=== PATIENT | male | born 1990 | race Caucasian/White ===

== ENCOUNTER 2018-12-09 05:16 | Emergency (ER) | payer OTHER ==
[~2018-12-09] VITALS: Ht 175.3 cm; Wt 106.8 kg
[2018-12-09 05:21] VITALS: Ht 175.3 cm; Wt 106.8 kg
[2018-12-09 05:51] LABS: BASOPHILS 0.2 % (0-2); EOSINOPHILS 3.7 % (0-7); HEMATOCRIT 49.2 % (42.0-54.0); HEMOGLOBIN 17.9 g/dL (13.5-17.5); IMMATURE GRANULOCYTES 0.3 % (0-5); LYMPHOCYTES 16.8 % (15-50); MCH 33.2 pg (26.0-34.0); MCHC 36.4 g/dL (31.0-37.0); MCV 91.3 fL (80.0-100.0); MEAN PLATELET VOLUME 10.9 fL (7.4-10.4); MONOCYTES 12.3 % (2-11); NEUTROPHILS 66.7 % (40-80); PLATELET COUNT 213 10x3/uL (130-400); RBC 5.39 10x6/uL (4.20-6.10); RDW 12.8 % (11.5-14.5); WBC 11.5 10x3/uL (4.8-10.8)
[2018-12-09 06:19] LABS: ALBUMIN 4.6 g/dL (3.4-5.0); ALKALINE PHOSPHATASE 70 U/L (46-116); ALT (SGPT) 30 U/L (10-68); BILIRUBIN - TOTAL 0.98 mg/dL (0.2-1.3); CALC OSMOLALITY 281 mosm/kg (275-300); CALCIUM 9.6 mg/dL (8.5-10.1); CARBON DIOXIDE 21.7 mmol/L (21.0-32.0); CHLORIDE - SERUM 106 mmol/L (98-107); CREATININE - SERUM 1.1 mg/dL (0.6-1.3); GLUCOSE 112 mg/dL (74-106); SODIUM 140 mmol/L (136-145); UREA NITROGEN 17 mg/dL (7-18); eGFR NON AFRICAN AMERICAN 84 mL/min (90-120)
[2018-12-09 06:21] LABS: POTASSIUM - SERUM 4.3 mmol/L (3.5-5.1)
[2018-12-09] MEDS ORDERED: DILAUDID4 MG PO (06:50)
[2018-12-09 06:52] LABS: APPEARANCE HAZY (CLEAR); BACTERIA NONE SEEN /hpf (NEGATIVE); BILIRUBIN NEGATIVE (NEGATIVE); COLOR YELLOW (YELLOW); EPITHELIAL CELLS RARE /hpf (0-5); GLUCOSE NEGATIVE (NEGATIVE); KETONE NEGATIVE (NEGATIVE); NITRITE NEGATIVE (NEGATIVE); PROTEIN NEGATIVE (NEGATIVE); SPECIFIC GRAVITY 1.025 (1.005-1.020); UROBILINOGEN NORMAL (NORMAL); WHITE CELLS - URINE NSEEN /hpf (NEGATIVE)
[2018-12-09 07:40] VITALS: BP 125/77
[2018-12-10 10:48] VITALS: Ht 175.3 cm; Wt 106.8 kg
[2018-12-10] MEDS ORDERED: FLUTICASONE PRO16 GM NASAL (10:48)
== END 2018-12-09 07:40 | disposition home or self-care (01) ==
LOC: D.ER 05:16
PROVIDERS: Emergency Medicine
DX: N23 Unspecified renal colic (principal); R11.10 Vomiting, unspecified

== ENCOUNTER 2018-12-09 23:43 | Observation (INO) | payer OTHER ==
[~2018-12-09] VITALS: Ht 175.3 cm; Wt 104.5 kg
[~2018-12-09 23:43] MED LIST: DILAUDID4 MG PO
--- NOTE | 2018-12-10 01:16 | NUR ---
ACCIDENTLY PUT FENTANYL IN SHARPS BEFORE DRAWING IT UP. INFORMED CHARGE. WASTED IN PYXIS.
[2018-12-10 02:28] VITALS: BP 113/66
[2018-12-10 03:02] VITALS: BP 125/71
[2018-12-10 04:04] VITALS: BP 138/79
--- NOTE | 2018-12-10 04:30 | NUR ---
ATTEMPTED TO CALL REPORT AT THIS TIME.
[2018-12-10 05:57] VITALS: BP 138/61; BMI 34.0
--- NOTE | 2018-12-10 06:50 | NUR ---
ADMISSION ASSESSMENT COMPLETE. VSS STABLE. NO VISUAL CUES OF DISTRESS NOTED. WILL CONTINUE TO MONITOR.
[2018-12-10 08:39] VITALS: BP 136/86
--- NOTE | 2018-12-10 08:40 | NUR ---
AM ROUNDS- PT IS RESTING COMFORTABLY IN BED AT THIS TIME. ALERT AND ORIENTED. VITAL SIGNS ASSESSED. PT COMPLAINT OF NASAL CONGESTION, INFORMED HIM I WILL TELL THE UNIX MANAGER/DOCTOR. DENIES ANY NEEDS AT THIS TIME. WILL CTM. BP- 130/86 P- 80 R- 17 O2- 99% ROOM AIR
--- NOTE | 2018-12-10 10:20 | NUR ---
PT SIGNED CONSENTS FOR LITHOTRIPSY PROCEDURE TODAY BY DR. FAY.
[2018-12-10 10:48] VITALS: Ht 175.3 cm; Wt 104.5 kg
[2018-12-10] MEDS ORDERED: FLUTICASONE PRO16 GM NASAL (10:48)
--- NOTE | 2018-12-10 13:00 | NUR ---
ADMINISTERED PRE-OP MEDICATIONS. DENIES ANY NEEDS. WILL CTM.
--- NOTE | 2018-12-10 13:08 | NUR ---
PT TO SURGERY.
--- NOTE | 2018-12-10 14:56 | NUR ---
PT STILL GONE TO PROCEDURE.
--- NOTE | 2018-12-10 15:45 | NUR ---
PT RETURNED FROM PROCEDURE. PT HAS A STENT AND THE STRING IS HANGING FROM THE PATIENT'S PENIS LIKE IT IS SUPPOSED TO BE. PT IS RESTING COMFORTABLY, RATES PAIN LEVEL AT 1/10. REQUESTED WATER, PROVIDED PROMPTLY. DENIES OTHER NEEDS. WILL CTM.
--- NOTE | 2018-12-10 17:15 | NUR ---
ADMINISTERED PRN PAIN MEDICATION FOR GENITAL PAIN FROM PROCEDURE TODAY. PT IS UPRIGHT EATING DINNER. DENIES ANY OTHER NEEDS AT THIS TIME. WILL CTM.
--- NOTE | 2018-12-10 17:46 | NUR ---
ADMINISTERED PRN MORPHINE FOR INCREASED GENITAL AREA PAIN AND KIDNEY/SIDE PAIN. TOLERATED WELL. DENIES ANY NEEDS. FRIENDS AT BEDSIDE. WILL REASSESS AND CTM.
--- NOTE | 2018-12-10 18:41 | NUR ---
CALLED DR. FAY IN REFERENCE TO PT STAYING ANOTHER NIGHT VERSUS BEING DISCHARGED TONIGHT. PT HAS HEMOTURIA (NORMAL AMOUNT) BUT WAS UNSETTLED BY IT AND IS HAVING TO HAVE IV MORPHINE TO CONTROL PAIN. DR. FAY OKAY'D PT STAYING THE NIGHT AND DISCHARGING IN THE AM IF PAIN IS STILL CONTROLLED.
[2018-12-10 20:06] VITALS: BP 124/67; BP 136/89
[2018-12-11 00:49] VITALS: BP 121/81
[2018-12-11 04:48] VITALS: BP 140/75
--- NOTE | 2018-12-11 09:06 | NUR ---
PT RESTING COMFORTABLY IN BED. STILL HAS MILD PAIN WITH URINATION. ATTEMPTING TO CONTACT DR. FAY FOR A PRESCRIPTION FOR PAIN RELIEF BEFORE DISCHARGE. DENIES ANY NEEDS. WILL CTM.
[2018-12-11] MEDS ORDERED: FLOMAX0.4 MG PO (09:55)
[2018-12-11] MEDS ORDERED: HYDROCODON-ACE1 EAC7 PO (09:56)
--- NOTE | 2018-12-11 10:27 | NUR ---
PT SIGNED DISCHARGE PAPERS. REMOVED IV FROM RIGHT FOREARM, CATHETER TIP INTACT TOLERATED WELL. DENIES ANY NEEDS. PROVIDED PT WITH A BELONGINGS BAG. DENIES ANY NEEDS. WILL BE ESCORTED TO THE FRONT BY FRIENDS.
--- NOTE | 2018-12-11 10:34 | OP ---
PATIENT NAME: QUINTIN ARAYA JR MEDICAL RECORD: [id number] :89 LOCATION:D.M3 D.1205 ADMISSION DATE:12/10/18 SURGEON: CLIFTON FAY MD DATE OF OPERATION: 12/10/2018 SURGEON: Clifton Fay MD ANESTHESIA: General anesthesia by Musa Sanchez CRNA. DIAGNOSIS: Left 3-mm distal ureteral stone. PROCEDURES: Cystoscopy, left retrograde pyelogram, left ureteroscopy and stone extraction, left ureteral stent insertion 6-[place] x 26 cm with string attached. FINDINGS: Radiolucent stone. The stone was at the left ureteral orifice on cystoscopy. BLOOD LOSS: None. CLINICAL HISTORY: This is a 28-year-old male with no previous history of kidney stones. He presented with acute left flank pain, nausea, and vomiting. 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 CT scan done in the Emergency Room shows a 3-mm stone at the left L3 vertebral body level. A KUB was obtained and no radiodense stone could be seen. He was continued to have a lot of severe pain. Initially, we wanted to perform left lithotripsy on him. When we placed him on the lithotripsy table, we could not find the stone at all as there was not radiodense. Most likely it is a uric acid stone. Due to the patient's extreme pain, I suspected that he may be trying to pass the stone and the stone may be at the left ureterovesical junction. Therefore, we switched plans to left ureteroscopy and stone extraction. DESCRIPTION OF PROCEDURE: The patient was placed on the cystoscopy table in supine position. He was given induction of general anesthesia. He was then placed into the lithotomy position and prepped and draped. Fluoroscopy again revealed no radiodense stones. We prepped and draped him. A cystoscopy was performed using a 21-[place] cystoscope with 30-degree lens. He has a nonobstructive prostate. No urethral strictures were seen. No bladder tumors were seen. He has single ureteral orifices bilaterally. The stone was seen right at the ureteral orifice. I decided to push the stone back a little bit more proximally with a 5-[place] open-ended ureteral catheter. Diluted contrast was injected for a retrograde pyelogram. It did not show any hydronephrosis. The stone was not evident either as radiolucency. Through the lumen of the ureteral catheter, we inserted a Sensor wire up into the renal pelvis. Once the wire was in position, the ureteral catheter was removed entirely. The wire was left behind. Over the wire we inserted an 18-[place] x 4-cm ureteral dilation balloon. The left ureteral orifice was dilated with 8 atmospheres of pressure for a few seconds and then the balloon was deflated. The balloon was then removed entirely. We switched to the left ureteroscope. We could almost immediately see the stone. A 4-wire basket was placed around the stone. However, once the stone came out of the left ureteral orifice, it fell off into the bladder. I could not see it with ureteroscopy due to the blood in the urine. I then switched to the cystoscope. Attempts to find the stone with the cystoscope were also unsuccessful. I had passed the ureteroscope back up the distal ureter and I did not see the stone. Therefore, I am pretty sure that the stone has passed into the bladder. We then loaded the wire back into the OPERATIVE REPORT [id number] QUINTIN ARAYA JR cystoscope and over the wire, we inserted the 6-[place] x 26 cm ureteral stent. Once the stent was in correct position, the wire was withdrawn entirely. The distal end of the stent was pushed into the bladder using the pusher. The bladder was then emptied through the cystoscope sheath and then the scope was removed. The string on the distal end of the stent is maintained. It hangs out of the urethra. It was tied to a knot and cut shorter. The patient can be discharged home with script for Flomax and [place] 5/325. I will see him in followup next week to remove the stent. 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 TRANSINT:[id number] Voice Confirmation ID: [id number] DOCUMENT ID: [id number] CLIFTON FAY MD at 1034 CC: [id number] DICTATION DATE: 12/10/181421 [employer]W MEMBER: 12/10/18 1542 ADM IN [facility] [address] [place] [id number]
== END 2018-12-11 10:54 | disposition home or self-care (01) ==
LOC: D.ER 23:43 → OBSVTIME 12-10 02:41 → D.M3 12-10 02:41
PROVIDERS: ADMIT Internal Medicine Nephrology; ATTEND Internal Medicine Nephrology
DX: N13.2 Hydronephrosis with renal and ureteral calculous obstruction (principal); Z87.891 Personal history of nicotine dependence